=== PATIENT | female | born 1990 | race Caucasian/White ===

== ENCOUNTER 2023-08-31 02:10 | Inpatient (IN) | payer OTHER, SELFPAY ==
[2023-08-31] VITALS (44 sets, daily range): BP systolic 93–142; BP diastolic 61–88; PULSE 63–106; RESP 16; TEMP 36–37.6; O2SAT 96–100; BMI 26.9
[2023-08-31 02:43] LABS: Absolute Lymphocyte Count 1.77 X10^3/uL (0.83-4.51); Absolute Neutrophil Count 14.4 X10^3/uL (2.0-7.7); Basophil# 0.06 X10^3/uL; Basophil% 0.3 % (0-1); Eosinophil# 0.05 X10^3/uL; Eosinophils% 0.3 % (0-5); Hematocrit 41.3 % (37-47); Hemoglobin 13.5 g/dL (12.0-15.0); Lymphocyte # 1.77 X10^3/ul (0.83-4.51); Lymphocyte % 10.2 % (19-41); Mean Corp Hgb Conc 32.7 g/dL (32-36); Mean Corpuscular Volume 94.9 fL (81-99); Monocyte# 0.97 X10^3/uL; Monocyte% 5.6 % (0-10); NRBC Flagged by Analyzer 0 % (0-5); Neutrophil % 82.7 % (47-70); Platelet Count 246 K/mm3 (150-450); RBC Distribution Width CV 13.4 % (11.6-14.6); RBC Distribution Width SD 46.7 fl (35.1-43.9); Red Blood Count 4.35 M/mm3 (4.2-5.4); White Blood Count 17.4 K/mm3 (4.4-11.0)
[2023-08-31] MEDS: Lactated Ringers 1,000 ML 999 ML IV (02:52)
--- NOTE | 2023-08-31 03:00 | PCM.HP.OB ---
HPI - General General Date of Admission: 08/31/23 HPI Narrative SALLY HARDING, is a 33 F who presents at 40 weeks with SROM and complete dilation. Maternal Data Information LAZ Calculator Estimated Delivery Date Method Current WG Current Estimate 08/31/23 Manual 40w 0d PFSH PFSH Medical History (Updated 08/31/23 @ 06:28 by Glory Pat CNM) Chlamydia Depression Allergy/AdvReac Type Severity Reaction Status Date / Time amoxicillin Allergy Mild PT UNSURE Verified 08/31/23 01:57 OF REACTION Social History Smoking Status: Never smoker History Elective abortions Hx Para 0 Spontaneous abortions Hx # Term Pregnancies Ectopic pregnancies Hx # Pregnancies Multiple births # of living children NST FHR Rate Baby A Baseline: 110 Variability:: Moderate Accelerations:: 15 x 15 Decelerations:: Variable FHR Category:: Category II Uterine Activity:: every 2-3 minutes strong ROS Constitutional Constitutional: Reports systems reviewed and no addt'l complaints, except as documented; Denies headache(s) Eyes Eyes: Denies acute decrease in peripheral vision, blurry vision or change in vision ENT HEENT: Reports systems reviewed and no addt'l complaints, except as documented Cardiovascular Cardiovascular: Denies chest pain or dizziness Respiratory/Chest Respiratory/Chest: Denies cough, dyspnea, dyspnea on exertion, shortness of breath at rest or shortness of breath with exertion Gastrointestinal Gastrointestinal: Denies abdominal pain, diarrhea, nausea or vomiting Genitourinary Genitourinary: Denies abdominal discomfort Musculoskeletal Musculoskeletal: Denies limited range of motion Integumentary Integumentary: Reports systems reviewed and no addt'l complaints, except as documented Neurologic Neurologic: Reports systems reviewed and no addt'l complaints, except as documented Psychiatric Psychiatric: Reports systems reviewed and no addt'l complaints, except as documented Endocrine Endocrinology: Reports systems reviewed and no addt'l complaints, except as documented Hematologic/Lymphatic Hematologic/Lymphatic: Reports systems reviewed and no addt'l complaints, except as documented Allergic/Immunologic Allergic/Immunologic: Reports systems reviewed and no addt'l complaints, except as documented Vital Signs Vital Signs Vital Signs: 08/31/23 02:01 08/31/23 02:01 08/31/23 02:01 Temperature Temperature Source Pulse Rate 63 Blood Pressure 142/86 H BP Systolic 142 BP Diastolic 86 Pulse Ox 97 08/31/23 02:02 08/31/23 02:02 08/31/23 02:02 Temperature 97.5 F L Temperature Source Temporal Pulse Rate Blood Pressure BP Systolic BP Diastolic Pulse Ox 97 Weight Weight: 162 lb Body Mass Index (BMI) 26.9 Physical Exam Const alert and oriented x3 General Appearance: cooperative Orientation / Consciousness: awake, oriented to person, oriented to place and oriented to time Exam Limitations: no limitations HEENT normocephalic Head and Scalp: normal to inspection, normocephalic and atraumatic Face and Sinus: normal facial exam Eyes General Eye: normal appearance of both eyes Neck full ROM Chest Chest: symmetrical chest wall rise Resp normal respiratory effort and normal air movement Auscultation: clear to auscultation bilaterally Cardio regular rate, regular rhythm, S1 normal heart sound, S2 normal heart sound, no murmurs, no rub, no gallops and no clicks GI normal to inspection, nondistended, normoactive bowel sounds and non-tender appearance of the vagina normal Bladder / Kidney Exam: no CVA tenderness Back/Spine normal ROM Extremity normal to inspection and full ROM Skin no rashes or lesions noted Neuro oriented x3, CN's II-XII intact bilaterally and moves all extremities Sensorium / Orientation: awake, alert and oriented to person Motor Exam: clonus absent Deep Tendon Reflexes: Rt Patellar (L4): 2+ and Lt Patellar (L4): 2+ Labs Labs Labs: Blood Type O POSITIVE Antibody Screen NEGATIVE Hct 41.3 % (37-47) Hgb 13.5 g/dL (12.0-15.0) Syphilis Total Ab Non-reactive GBS negative RPR negative HepC negative HBsAG negative Rubella Immune HIV negative O positive GC/CT negative Assessment & Plan (1) Active labor at term: (2) 40 weeks gestation of : PLAN: Plan 1) Admit to labor and delivery 2) Routine labs 3) Continuous EFM due to Category 2 tracing 4) Pain management upon request 5) GBS negative 6) notified of patient admission and status. Notified of heart rate 105-110 and recurrent variable decelerations.
[2023-08-31 03:58] LABS: Syphilis Antibodies Non-reactive
[2023-08-31] MEDS: Oxytocin 10 UNITS/ML Vial IM (05:57)
[2023-08-31] MEDS: Oxytocin 15 Units/NS 250ml 15 UNITS/250 ML IV.SOLN 83 UNITS IV (05:57)
[2023-08-31] MEDS: Lidocaine 1% (20 ml mdv) 20 ML Vial INFILT (06:00)
--- NOTE | 2023-08-31 06:31 | EX.PCM.OBRPT ---
Maternal Data Information LAZ Calculator Estimated Delivery Date Method Current WG Current Estimate 08/31/23 Manual 40w 0d Vaginal Delivery Maternal Presentation Maternal Presentation: Active Labor Operative Information Date of Procedure: 08/31/23 Pre-Operative Diagnosis: Active labor at term Post-Operative Diagnosis: , shoulder dystocia, 2nd degree perineal lacertion Surgery / Procedure Performed: Spontaneous Vaginal Delivery Type of Anesthesia: Local with 1% Lidocaine Estimated Blood Loss: 400ml Time of Delivery: 05:49 Findings Description of Procedure: Progressed to complete with urge to push, unmedicated. of viable male infant over 2nd degree perineal laceration. APGARS 8,9 respectively. head delivered with positive turtle sign. Staff assist called to room. McRobert's and suprapubic pressure after head delivered and not forthcoming, Gallo and wodscrew maneuver and went to deliver posterior arm and baby delivered, lasted 34 seconds. Poor tone, color, and no cry. Placed on maternal abdomen, Mouth and nares suctioned for secretions. Cord clamped and cut, stimulated and cry. Remained on maternal abdomen and then transferred to [facility] for evaluation by production planner. Pitocin started for active 3rd stage management. Placenta delivered intact via ethel, 3 vessel cord intact. Perineum inspected and revealed 2nd degree perineal laceration. Repaired with 3.0 vicryl rapide and lidocaine. Fundus firm and hemostasis achieved. EBL 400ml. Mom and baby stable, planning to breastfeed. Family bonding well. notified of delivery. SHYLA Jansen present for delivery Presentation: Vertex Amniotic Membrane Rupture Type: Spontaneous Amniotic Fluid Description: Clear Placental Delivery Description: Spontaneous Placenta Disposition: [facility] Cord Vessel Description: 3 Vessels Cord Entanglement: None A Gender: Male (1 minute): 8 (5 minute): 9 Delayed Cord Clamping: Yes Post Vaginal Delivery Medications Given After Delivery: IV Pitocin and IM Pitocin Episiotomy Description: None Laceration: Perineal Extension/lac and 2nd degree Complication Complications: None
[2023-08-31] MEDS: Benzocaine/Lanolin/Aloe Vera 1 SPRAY EACH TOPICAL (08:44)
[2023-08-31] MEDS: Ibuprofen 600 MG Tablet PO (14:43)
[2023-08-31] MEDS: Senna/Docusate Sodium 1 Tablet PO (14:44)
[2023-09-01] VITALS: BP 115/56; PULSE 70; RESP 18; TEMP 36.8; O2SAT 96
[2023-09-01 00:22] VITALS: BP 115/56; PULSE 69
[2023-09-01 04:00] VITALS: BP 100/65; PULSE 84; RESP 16; TEMP 36.6; O2SAT 99
[2023-09-01 04:32] VITALS: BP 100/65; PULSE 81
[2023-09-01 04:47] LABS: Hemoglobin 10.6 g/dL (12.0-15.0); Mean Corp Hgb Conc 33.1 g/dL (32-36); Mean Corpuscular Hgb 31.1 pg (27.0-32.0); Mean Corpuscular Volume 93.8 fL (81-99); Mean Platelet Vol. 10.7 fl (6.2-12.0); Platelet Count 205 K/mm3 (150-450); RBC Distribution Width CV 13.6 % (11.6-14.6); RBC Distribution Width SD 46.6 fl (35.1-43.9); Red Blood Count 3.41 M/mm3 (4.2-5.4); White Blood Count 15.1 K/mm3 (4.4-11.0)
--- NOTE | 2023-09-01 08:56 | PN.OBGYN_ITS ---
Subjective Subjective Doing well per patient and nursing staff. Ambulating and taking PO without difficulty. Voiding and passing flatus. Pain controlled. Denies headache, visual changes, chest pain, shortness of breath, leg pain or increased bleeding. Lochia normal. Objective Data Objective Data Vital Signs: Vital Signs Temp Pulse Resp BP Pulse Ox O2 Del Method 98 F 81 16 100/65 99 Room Air 09/01/23 04:00 09/01/23 04:32 09/01/23 04:00 09/01/23 04:32 09/01/23 04:00 09/01/23 04:00 Oxygen Delivery Method Room Air Weight: 162 lb Body Mass Index (BMI) 26.9 Intake & Output: Intake and Output for Last 24 Hours 08/30/23 08/31/23 09/01/23 23:59 23:59 23:59 Intake Total 1239.5 / 1239.5 Output Total 1300 / 1300 Balance -60.5 / -60.5 Lab / Micro Data 09/01/23 04:35 Labs: Laboratory Results - last 24 hr 09/01/23 04:35: WBC 15.1 H, RBC 3.41 L, Hgb 10.6 L, Hct 32.0 L, MCV 93.8, MCH 3 1.1, MCHC 33.1, RDW Std Deviation 46.6 H, RDW Coeff of Demetris 13.6, Plt Count 205, MPV 10.7 ROS Constitutional Constitutional: Reports systems reviewed and no addt'l complaints, except as doc umented; Denies headache(s) Eyes Eyes: Denies acute decrease in peripheral vision, blurry vision or change in vision ENT HEENT: Reports systems reviewed and no addt'l complaints, except as documented Cardiovascular Cardiovascular: Denies chest pain or dizziness Respiratory/Chest Respiratory/Chest: Denies cough, dyspnea, dyspnea on exertion, shortness of breath at rest or shortness of breath with exertion Gastrointestinal Gastrointestinal: Denies abdominal pain, diarrhea, nausea or vomiting Genitourinary Genitourinary: Denies abdominal discomfort Musculoskeletal Musculoskeletal: Denies limited range of motion Integumentary Integumentary: Reports systems reviewed and no addt'l complaints, except as do cumented Neurologic Neurologic: Reports systems reviewed and no addt'l complaints, except as documented Psychiatric Psychiatric: Reports systems reviewed and no addt'l complaints, except as documented Endocrine Endocrinology: Reports systems reviewed and no addt'l complaints, except as documented Hematologic/Lymphatic Hematologic/Lymphatic: Reports systems reviewed and no addt'l complaints, except as documented Allergic/Immunologic Allergic/Immunologic: Reports systems reviewed and no addt'l complaints, except as documented Physical Exam Const alert and oriented x3 General Appearance: cooperative Orientation / Consciousness: awake, oriented to person, oriented to place and oriented to time Exam Limitations: no limitations HEENT normocephalic Head and Scalp: normal to inspection, normocephalic and atraumatic Face and Sinus: normal facial exam Eyes General Eye: normal appearance of both eyes Neck full ROM Chest Chest: symmetrical chest wall rise Resp normal respiratory effort and normal air movement Auscultation: clear to auscultation bilaterally Cardio regular rate, regular rhythm, S1 normal heart sound, S2 normal heart sound, no murmurs, no rub, no gallops and no clicks GI normal to inspection, nondistended, normoactive bowel sounds and non-tender appearance of the vagina normal Bladder / Kidney Exam: no CVA tenderness Back/Spine normal ROM Extremity normal to inspection and full ROM Skin no rashes or lesions noted Neuro oriented x3 and moves all extremities Sensorium / Orientation: awake, alert and oriented to person Assessment & Plan (1) Vaginal delivery: PLAN: Plan 1) PPD #1 2) Pain management 3) Vitals stable 4) Follow up in 2 week and 6 week PP 5) D/C home
--- NOTE | 2023-09-01 08:56 | PCM.DC ---
Discharge Instructions Diet Discharge Diet: No restrictions Activity Discharge Activity: Return to Normal Activity, May Drive, May Shower and May Take a Tub Bath May resume sexual activity in: 6 weeks Weight Bearing Status: Full weight bearing Dressing / Incision Call your doctor if your incision/area has: Sudden Increased Bleeding, Increased Pain/ Swelling and Foul Smelling Discharge Call your doctor if you observe: Fever of 101 or Higher, Inability to urinate, Using more than 1 pad per hour, Shortness of breath, Dizziness, Fainting spells, Chest pain, Calf discomfort and Uncontrolled pain Follow Up Care Please Follow Up With: Glory Pta CNM When: 2 weeks virtual, 6 weeks PP in office Test Results: Test results from this visit will be discussed in further detail at your follow-up appointment, if applicable. Discharge Plan Admission Admit Date/Time: 08/31/23 02:10 Primary Reason for Your Visit: Vaginal delivery Attending Provider: Glory Pat Primary Care Provider: Care Physician,No Primary Discharge Orders/Prescriptions Referrals / Follow Up: Glory Pat CNM [Med Staff - [facility] Practice Prof] - Care Physician,No Primary [Primary Care Provider] - Disposition Disposition (needs filled in before D/C Order can be placed): Home, Self Care
[2023-09-01 09:10] VITALS: BP 112/57; PULSE 75; PULSE 76; RESP 18; TEMP 36.4; O2SAT 99
== END 2023-09-01 13:50 | disposition home or self-care (01) | DRG 807 ==
LOC: WPOUT 02:13 → WP 02:13
PROVIDERS: Admitting Provider Advanced Practice Midwife; Visit Provider Advanced Practice Midwife
DX: O76 Abnormality in fetal heart rate and rhythm complicating labor and delivery (principal); Z37.0 Single live birth; O42.92 Full-term premature rupture of membranes, unspecified as to length of time between rupture and onset of labor; O66.0 Obstructed labor due to shoulder dystocia; O70.1 Second degree perineal laceration during delivery; Z3A.40 40 weeks gestation of pregnancy
CPT/HCPCS: 59025; 59050; 85025; 85027; 86780; 86850; 86900; 86901; 99221; J7120; G0378